=== PATIENT | female | born 1955 | race Caucasian/White ===

== ENCOUNTER 2021-12-25 09:32 | Observation (INO) ==
[2021-12-25] MEDS ORDERED: KETOROLAC TROMETHAMINE 15 MG/ML VIAL IV STA (09:42)
[2021-12-25] MEDS ORDERED: SODIUM CHLORIDE 0.9% 1000ML 500 ML IV ONE (09:42)
[2021-12-25] MEDS ORDERED: ONDANSETRON INJ 2 MG/ML 2 ML VIAL IV STA (09:42)
[2021-12-25 10:07] LABS: Basophils # (auto) 0.08 K/uL (0-0.2); Basophils % (auto) 0.6 %; Eosinophils # (auto) 0.46 K/uL (0-0.50); Eosinophils % (auto) 3.7 %; Hematocrit (blood only) 40.9 % (34.1-44.9); Immature Granulocytes # (auto) 0.11 K/uL (0.00-0.02); Immature Granulocytes % (auto) 0.9 %; Lymphocytes # (auto) 1.37 K/uL (1.2-3.4); Lymphocytes % (auto) 10.9 %; Mean Corpuscular Hemoglobin 28.9 pg (25.0-34.0); Mean Corpuscular Hgb Conc 34.2 g/dL (32.0-36.0); Mean Corpuscular Volume 84.3 fL (80.0-100.0); Mean Platelet Volume 9.5 fL (9.4-12.3); Monocytes # (auto) 0.92 K/uL (0.24-0.82); Monocytes % (auto) 7.3 %; Neutrophils # (auto) 9.65 K/uL (1.4-6.5); Neutrophils % (auto) 76.6 %; Platelet Count 238 K/uL (130-400); RDW Coefficient of Variation 12.3 % (11.5-14.5); RDW Standard Deviation 37.8 fL (36.4-46.3); Red Blood Count 4.85 M/uL (3.93-5.22); White Blood Count 12.59 K/ul (4.8-10.8)
[2021-12-25 10:10] LABS: Appearance Urine Clear (Clear); Bacteria Urine Automated Negative (Negative); Bilirubin Urine Negative (Negative); Blood Urine 1+ (Negative); Cast Urine Automated 0 /lpf (0-5); Color Urine Yellow; Epithelial Cell Urine Auto 0-5 /lpf (0-5); Glucose Urine UA Negative (Negative); Ketones Urine Negative (Negative); Leukocyte Esterase Urine Negative (Negative); Nitrite Urine Negative (Negative); Protein Urine Negative (Negative); Specific Gravity Urine 1.009 (1.000-1.030); Urobilinogen Urine Negative (Negative); WBC Urine Automated 0 /hpf (0-5)
[2021-12-25 10:25] LABS: Albumin Level 4.2 gm/dl (3.4-5.0); BUN Creatinine Ratio 18.3 (10-20); Bilirubin Direct 0.1 mg/dl (0-0.2); Bilirubin,Total 0.8 mg/dl (0.2-1.0); Calcium 8.8 mg/dl (8.5-10.1); Creatinine Clr Calc Pharmacy 68.2 ml/min; Est GFR (African American) 103.6 ml/min; Est GFR (Non-African American) 89.4 ml/min; Total Protein 6.8 gm/dl (6.0-8.3)
[2021-12-25] MEDS ORDERED: OPTIRAY 300 100mL IV ONE (10:39)
--- NOTE | 2021-12-25 10:54 | CT Scan Report ---
ABDOMEN AND PELVIS CT WITH IV CONTRAST CT DOSE: 267.49 mGy.cm HISTORY: Left lower quadrant abdominal pain. TECHNIQUE: Multiaxial CT images of the abdomen and pelvis were performed following the use of intrave nous contrast. A dose lowering technique was utilized adhering to the principles of ALARA. COMPARISON STUDY: None. FINDINGS: Mild dependent changes seen within the lung bases. No pneumoperitoneum. No pneumatosis. Mil [id number]-na-daxsbrlm levoscoliosis of the lower thoracolumbar spine. No fractures within the visualized osse ous structures. A few subcentimeter hypodense lesions within the liver which are technically too smal l to characterize but favor cysts. The gallbladder, spleen, adrenal glands, and kidneys are unremarka ble. No hydronephrosis. The main portal vein is patent. Normal caliber abdominal aorta. No retroperit hutton lymphadenopathy. There is a 5 mm hypodense lesion within the pancreatic head. This is technical ly too small to characterize but favors a small cystic lesion such as a side branch intraductal papil meghna mucinous neoplasm or serous cystadenoma. The bladder, uterus, and ovaries are within normal limi ts. Trace pelvic free fluid. Multiple colonic diverticula. Focal thickening within the proximal to mi d sigmoid colon with pericolonic fat stranding and an inflamed diverticulum consistent with acute div erticulitis. There is a loculated peripheral enhancing hypodense focus within the inflamed sigmoid co corby on image 331 which measures 2 cm. This favors a small intramural abscess. No extraluminal gas kalin ntified. No evidence for bowel obstruction. Moderate well-formed stool within the colon. Normal appen leticia. IMPRESSION: 1. Acute sigmoid diverticulitis. There appears to be a 2 cm intramural abscess. No extraluminal gas i dentified at this time. 2. No evidence for a bowel obstruction. 3. Normal appendix. 4. Trace pelvic free fluid. ACT 112: Negative or not required by law. Electronically signed by: Josep Billingsley M.D. 12/25/2021 10:51 AM
[2021-12-25] MEDS ORDERED: PIPERACILLIN/TAZOBACTAM 4.5 GM/120 ML BAG IV ONE (11:03)
--- NOTE | 2021-12-25 11:09 | Emergency Department Note ---
History of Present Illness General Chief Complaint: GI Assessment Stated Complaint: ABDOMINAL PAIN, NAUSEA, CRAMPING Time Seen by Provider: 12/25/21 09:42 History of Present Illness Provider Complaint: abdominal pain Onset (ago): 2 week(s) Pain Consistency: intermittent Location: LLQ Severity: mild Maximum Pain Intensity: 2 Current Pain Intensity: 2 Quality: + stabbing and + sharp Relieved By: + nothing Exacerbated By: + nothing Context: no foreign travel, no possible food poisoning, no sick contacts, no recent antibiotic use, no recent surgery/procedure or no recent injury Associated Symptoms: + nausea and + vomiting; no diarrhea, no fever, no chills, no constipation, no dysuria, no hematemesis, no hematochezia, no melena, no hematuria, no anorexia, no syncope, no headache, no neck pain, no chest pain, no weakness and no breathing difficulty Related Data Patient Confirmed : No Home Medications Medication Instructions Recorded Confirmed Type clobetasol 0.05 % topical cream 1 applic topical .COMPLEX #15 grams 08/19/21 12/25/21 Rx estradiol 0.01% (0.1 mg/gram) 1 g vaginal .COMPLEX #42.5 grams 08/19/21 12/25/21 Rx vaginal cream multivitamin (Multiple Vitamins 1 tab PO DAILY 08/19/21 12/25/21 History tablet) Allergies Allergy/AdvReac Type Severity Reaction Status Date / Time nickel Allergy Unknown rash Verified 08/19/21 14:43 No Known Drug Allergies Allergy Verified 08/19/21 14:43 Past Med/Surg History Medical History Dyspareunia due to medical condition in female History of depression History of postmenopausal bleeding History of uterine leiomyoma Lichen sclerosus et atrophicus Postmenopausal Postmenopausal atrophic vaginitis Surgical History S/P arthroscopy of knee S/P tooth extraction Status post hysteroscopic polypectomy Status post phlebectomy Family History Uncle Colorectal cancer maternal Mother Diabetes Father Hypertension Denies family history of Ovarian cancer Breast cancer Social History Smoking Status: Never smoker Feels Safe at Home: Yes Review of Systems A total of 10 systems reviewed and were otherwise negative Physical Exam Vital Signs: Vital Signs - 24 hr 12/25/21 09:38 12/25/21 11:24 12/25/21 13:00 Temperature 36.8 C Temperature Source Temporal Artery Sc an Pulse Rate 76 Pulse Rate [Left F quentin] 57 L 67 Respiratory Rate 20 17 16 Respiratory Effort / Characteristics Non-Labored Non-Labored Respiratory Depth Normal Blood Pressure 123/68 Blood Pressure [Le ft Arm] 105/56 L 112/64 Blood Pressure Diamond n 86 Blood Pressure Diamond n [Left Arm] 72 80 Pulse Oximetry 98 99 100 Oxygen Delivery Me thod Room Air Room Air Room Air Sepsis Recent Feve r Within 48 Hours No Sepsis New/Unexpla ined Change in Men rey Status N/A Sepsis Action Take n by Nursing No Action Required Physical Exam: Physical Exam GENERAL: She is oriented to person, place, and time. She appears well-developed and well-nourished. She does not appear distressed. HENT: Exam performed. -Head: Normocephalic and atraumatic. -Right Ear: External ear normal. No mastoid tenderness. -Left Ear: External ear normal. No mastoid tenderness. -Mouth/Throat: The oropharynx is clear and moist. No trismus in the jaw. No dental abscesses or uvula swelling. No oropharyngeal exudate or tonsillar a bscesses. EYES: Conjunctivae and EOM are normal. Pupils are equal, round, and reactive to light. Right eye exhibits no discharge. Left eye exhibits no discharge. No scleral icterus. NECK: Normal range of motion. Neck supple. No JVD present. No spinous process tenderness present. No carotid bruit present. No rigidity. No tracheal deviation and normal range of motion present. No Brudzinski's sign and no Kernig's sign noted. CV: Normal rate, regular rhythm, normal heart sounds and intact distal pulses. There is no peripheral edema. Palpable radial pulses bue. PULM/CHEST: Effort normal and breath sounds normal. No respiratory distress. No stridor. She has no wheezes. She has no rales. -Chest Wall: She exhibits no tenderness. ABD: The abdomen is soft. Bowel sounds are normal. She has no distension. No mass is present. There is tenderness to palpation of the left lower quadrant. There is no rebound, no guarding, no Vaughan's sign and no tenderness at McBurney's point. Rovsig negative MUSC/SKEL: Normal range of motion. There is no peripheral edema, tenderness or deformity. LYMPH: No cervical adenopathy. NEURO: She is alert and oriented to person, place, and time. She has normal strength. No cranial nerve deficit or sensory deficit. Coordination and gait normal. GCS eye subscore is 4. GCS verbal subscore is 5. GCS motor subscore is 6. Cerebellar tests wnl. SKIN: Skin is warm and dry. She is not diaphoretic. PSYCH: She has a normal mood and affect. Behavior is normal. Judgment and thought content normal. Course Course 941: The patient was evaluated in room B11. A complete history and physical exam was performed Cardiac monitoring: An order was placed for continuous cardiac monitoring. The monitor shows a rate of 70 with sinus rhythm 1125: Vital signs stable. Labs within normal limits with exception of minimal leukocytosis. CT of the abdomen shows diverticulitis with a 2 cm intramural abscess. Discussed case with Dr. Littlejohn general surgery who agrees patient can be admitted to medicine and she will be on consult. Zosyn ordered for the patient. Spoke with Ashley Peguero hospitalist who stated to admit to Dr. Malik service. Administered Medications Discontinued Medications Sodium Chloride (Nss 1000ml) 500 mls @ 999 mls/hr IV .Q31M ONE Stop: 12/25/21 10:12 Last Infusion: 12/25/21 10:44 Dose: 0 mls/hr Documented By: Admin: 12/25/21 10:03 Dose: 999 mls/hr Documented By: BRAD Piperacillin Sod/Tazobactam Sod (Zosyn) 4.5 gm in 120 mls @ 240 mls/hr IV NOW ONE Stop: 12/25/21 11:32 Last Infusion: 12/25/21 11:50 Dose: 0 mls/hr Documented By: Admin: 12/25/21 11:20 Dose: 240 mls/hr Documented By: CHRISSY Ioversol (Optiray 300 100ml) 94 ml IV ONCE ONE Stop: 12/25/21 10:40 Last Admin: 12/25/21 10:40 Dose: 94 ml Documented By: MATT Ketorolac Tromethamine (Ketorolac Tromethamine 15 Mg/Ml Vial) 15 mg IV NOW STA Stop: 12/25/21 09:43 Last Admin: 12/25/21 10:03 Dose: 15 mg Documented By: BRAD Ondansetron HCl (Ondansetron Inj 2 Mg/Ml 2 Ml Vial) 4 mg IV NOW STA Stop: 12/25/21 09:43 Last Admin: 12/25/21 10:03 Dose: 4 mg Documented By: BRAD Medical Decision Making Laboratory Data Result diagrams: 12/25/21 09:58 12/25/21 09:58 Lab Results 12/25/21 12/25/21 12/25/21 Range/Units 09:55 09:58 09:58 WBC 12.59 H (4.8-10.8) K/ul RBC 4.85 (3.93-5.22) M/uL Hgb 14.0 (12.0-16.0) g/dl Hct 40.9 (34.1-44.9) % MCV 84.3 (80.0-100.0) fL MCH 28.9 (25.0-34.0) pg MCHC 34.2 (32.0-36.0) g/dL RDW Std Deviation 37.8 (36.4-46.3) fL RDW Coeff of Dixon 12.3 (11.5-14.5) % Plt Count 238 (130-400) K/uL MPV 9.5 (9.4-12.3) fL Immature Gran % (Auto) 0.9 % Neut % (Auto) 76.6 % Lymph % (Auto) 10.9 % [place] % (Auto) 7.3 % Eos % (Auto) 3.7 % Baso % (Auto) 0.6 % Neut # (Auto) 9.65 H (1.4-6.5) K/uL Lymph # (Auto) 1.37 (1.2-3.4) K/uL [place] # (Auto) 0.92 H (0.24-0.82) K/uL Eos # (Auto) 0.46 (0-0.50) K/uL Baso # (Auto) 0.08 (0-0.2) K/uL Immature Gran # (Auto) 0.11 H (0.00-0.02) K/uL Sodium 131 L (136-145) mmol/L Potassium 4.0 (3.5-5.1) mmol/L Chloride 96 L (98-107) mmol/L Carbon Dioxide 29 (21-32) mmol/L Anion Gap 6 (3-11) BUN 13 (6-23) mg/dl Creatinine 0.71 (0.6-1.2) mg/dl Est Cr Clr Drug Dosing 68.2 ml/min Est GFR ( Amer) 103.6 ml/min Est GFR (Non-Af Amer) 89.4 ml/min BUN/Creatinine Ratio 18.3 (10-20) Glucose 95 (70-99(Fasting)) mg/dl Calcium 8.8 (8.5-10.1) mg/dl Total Bilirubin 0.8 (0.2-1.0) mg/dl Direct Bilirubin 0.1 (0-0.2) mg/dl AST 13 (13-39) U/L ALT 10 (7-52) U/L Alkaline Phosphatase 65 (34-104) U/L Total Protein 6.8 (6.0-8.3) gm/dl Albumin 4.2 (3.4-5.0) gm/dl Lipase 8 L (11-82) U/L Urine Color Yellow Urine Appearance Clear (Clear) Urine pH 8.0 H (4.5-7.5) Ur Specific [place] 1.009 (1.000-1.030) Urine Protein Negative (Negative) Urine Glucose (UA) Negative (Negative) Urine Ketones Negative (Negative) Urine Blood 1+ H (Negative) Urine Nitrite Negative (Negative) Urine Bilirubin Negative (Negative) Urine Urobilinogen Negative (Negative) Ur Leukocyte Esterase Negative (Negative) Urine WBC (Auto) 0 (0-5) /hpf Urine RBC (Auto) 5-10 H (0-4) /hpf U Hyaline Cast (Auto) 0 (0-5) /lpf U Epithel Cells (Auto) 0-5 (0-5) /lpf Urine Bacteria (Auto) Negative (Negative) SARS-CoV-2, RNA, NAAT (NEGATIVE) 12/25/21 Range/Units 11:59 WBC (4.8-10.8) K/ul RBC (3.93-5.22) M/uL Hgb (12.0-16.0) g/dl Hct (34.1-44.9) % MCV (80.0-100.0) fL MCH (25.0-34.0) pg MCHC (32.0-36.0) g/dL RDW Std Deviation (36.4-46.3) fL RDW Coeff of Dixon (11.5-14.5) % Plt Count (130-400) K/uL MPV (9.4-12.3) fL Immature Gran % (Auto) % Neut % (Auto) % Lymph % (Auto) % [place] % (Auto) % Eos % (Auto) % Baso % (Auto) % Neut # (Auto) (1.4-6.5) K/uL Lymph # (Auto) (1.2-3.4) K/uL [place] # (Auto) (0.24-0.82) K/uL Eos # (Auto) (0-0.50) K/uL Baso # (Auto) (0-0.2) K/uL Immature Gran # (Auto) (0.00-0.02) K/uL Sodium (136-145) mmol/L Potassium (3.5-5.1) mmol/L Chloride (98-107) mmol/L Carbon Dioxide (21-32) mmol/L Anion Gap (3-11) BUN (6-23) mg/dl Creatinine (0.6-1.2) mg/dl Est Cr Clr Drug Dosing ml/min Est GFR ( Amer) ml/min Est GFR (Non-Af Amer) ml/min BUN/Creatinine Ratio (10-20) Glucose (70-99(Fasting)) mg/dl Calcium (8.5-10.1) mg/dl Total Bilirubin (0.2-1.0) mg/dl Direct Bilirubin (0-0.2) mg/dl AST (13-39) U/L ALT (7-52) U/L Alkaline Phosphatase (34-104) U/L Total Protein (6.0-8.3) gm/dl Albumin (3.4-5.0) gm/dl Lipase (11-82) U/L Urine Color Urine Appearance (Clear) Urine pH (4.5-7.5) Ur Specific [place] (1.000-1.030) Urine Protein (Negative) Urine Glucose (UA) (Negative) Urine Ketones (Negative) Urine Blood (Negative) Urine Nitrite (Negative) Urine Bilirubin (Negative) Urine Urobilinogen (Negative) Ur Leukocyte Esterase (Negative) Urine WBC (Auto) (0-5) /hpf Urine RBC (Auto) (0-4) /hpf U Hyaline Cast (Auto) (0-5) /lpf U Epithel Cells (Auto) (0-5) /lpf Urine Bacteria (Auto) (Negative) SARS-CoV-2, RNA, NAAT NEGATIVE (NEGATIVE) Imaging Data Radiologist's Impression: Abdomen/Pelvis CT 12/25/21 09:[address] WITH IV CONTRAST CT DOSE: 267.49 mGy.cm HISTORY: Left lower quadrant abdominal pain. TECHNIQUE: Multiaxial CT images of the abdomen and pelvis were performed following the use of intravenous contrast. A dose lowering technique was utilized adhering to the principles of ALARA. COMPARISON STUDY: None. FINDINGS: Mild dependent changes seen within the lung bases. No pneumo peritoneum. No pneumatosis. [id number] levoscoliosis of the lower thoracolumbar spine. No fractures within the visualized osseous structures. A few subcentimeter hypodense lesions within the liver which are technically too small to characterize but favor cysts. The gallbladder, spleen, adrenal glands, and kidneys are unremarkable. No hydronephrosis. The main portal vein is patent. Normal caliber abdominal aorta. No retroperitoneal lymphadenopathy. There is a 5 mm hypodense lesion within the pancreatic head. This is technically too small to characterize but favors a small cystic lesion such as a side branch intraductal papillary mucinous neoplasm or serous cystadenoma. The bladder, uterus, and ovaries are within normal limits. Trace pelvic free fluid. Multiple colonic diverticula. Focal thickening within the proximal to mid sigmoid colon with pericolonic fat stranding and an inflamed diverticulum consistent with acute diverticulitis. There is a loculated peripheral enhancing hypodense focus within the inflamed sigmoid colon on image 331 which measures 2 cm. This favors a small intramural abscess. No extraluminal gas identified. No evidence for bowel obstruction. Moderate well-formed stool within the colon. Normal appendix. IMPRESSION: 1. Acute sigmoid diverticulitis. There appears to be a 2 cm intramural abscess. No extraluminal gas identified at this time. 2. No evidence for a bowel obstruction. 3. Normal appendix. 4. Trace pelvic free fluid. ACT 112: Negative or not required by law. Electronically signed by: Josep Billingsley M.D. 12/25/2021 10:51 AM MDM Narrative Vital signs stable. Labs within normal limits with exception of minimal leukocytosis. CT of the abdomen shows diverticulitis with a 2 cm intramural abscess. Discussed case with Dr. Littlejohn general surgery who agrees patient can be admitted to medicine and she will be on consult. Zosyn ordered for the patient. Spoke with Ashley Peguero hospitalist who stated to admit to Dr. Malik service. Impression & Plan Diverticulitis Discharge Plan Visit Data Chief Complaint: GI Assessment Stated Complaint: ABDOMINAL PAIN, NAUSEA, CRAMPING ED Provider: Remy Espitia Discharge Problem: Diverticulitis Patient Disposition: Admitted As Inpatient Forms Stand Alone Forms: [facility] [employer] Prescriptions Prescriptions: No Action multivitamin [Multiple Vitamins] Tablet 1 tab PO DAILY clobetasol 0.05 % cream 1 applic TOP .COMPLEX Qty: 15 1RF Rx Instructions: 1 applic topical 1-2 times per week; estradiol 0.01 % (0.1 mg/gram) cream 1 g vaginal .COMPLEX Qty: 42.5 2RF Rx Instructions: 1 g apply to vulva twice weekly Referrals Referrals: Cuba Washington MD [Primary Care Provider] -
--- NOTE | 2021-12-25 11:27 | History & Physical Report ---
Date of Service December 25, 2021 Assessment & Plan (1) Diverticulitis: (2) Abscess of sigmoid colon due to diverticulitis: Plan: Patient is 66-year-old female with PMH diverticulitis presented to ER with complaint of nauea x 1 week, LLQ pain x 2 days. Denies fever/chills, vomiting, diarrhea. In ER patient afebrile, vital stable. WBC: 12.5. In ER CT abdomen pelvis: Acute sigmoid diverticulitis, 2 cm intramural abscess. In ER given Zofran, Zosyn, Toradol, 500 mL NSS Blood cultures pending, obtained after initial antibiotics given N.p.o. IVF Zosyn General surgery consult. Recommends bowel rest and Zosyn, with no need for surgical intervention at this time CBC, BMP in a.m. (3) Lichen sclerosus et atrophicus: Plan: Can continue chronic estradiol cream DVT Prophylaxis SCDs Full Code as per discussion with pt Follows with Dr Washington for routine care Pt was seen and care coordinated with Dr Malik. See addendum History of Present Illness Chief Complaint: Left lower abdominal pain Primary Care Provider: Cuba Washington MD Patient is 66-year-old female with PMH diverticulitis presented to ER with complaint of left lower quadrant pain x 2 days. Reports past week with intermittent nausea that became worse yesterday. LLQ aching and cramping for 2 days that worsened last night. Denies radiating pain. She has been having clear liquid diet at home past several days as she was concerned she may have diverticulitis. Reports eating seemed to make pain worse. Patient reports history of diverticulitis in past that was able to be treated outpatient. Denies fever, chills, vomiting, diarrhea. Last BM this morning. History colonoscopy 04/05/2021: Diverticulosis in the entire colon. Denies diaphoresis, melena, hematochezia, TAPIA, dizziness, syncope, vision changes, neck pain, CP, SOB, orthopnea, palpitations, cough, sore throat, choking, otalgia, rhinorrhea, paresthesias, weakness, extremity weakness, extremity edema, rashes, urinary symptoms. In ER CT abdomen pelvis: Acute sigmoid diverticulitis, 2 cm intramural abscess. Allergies Allergy/AdvReac Type Severity Reaction Status Date / Time nickel Allergy Unknown rash Verified 08/19/21 14:43 No Known Drug Allergies Allergy Verified 08/19/21 14:43 Home Medications Medication Instructions Recorded Confirmed Type clobetasol 0.05 % topical cream 1 applic topical .COMPLEX #15 grams 08/19/21 12/25/21 Rx estradiol 0.01% (0.1 mg/gram) 1 g vaginal .COMPLEX #42.5 grams 08/19/21 12/25/21 Rx vaginal cream multivitamin (Multiple Vitamins 1 tab PO DAILY 08/19/21 12/25/21 History tablet) Past Med/Surg History Medical History Dyspareunia due to medical condition in female History of depression History of postmenopausal bleeding History of uterine leiomyoma Lichen sclerosus et atrophicus Postmenopausal Postmenopausal atrophic vaginitis Surgical History S/P arthroscopy of knee S/P tooth extraction Status post hysteroscopic polypectomy Status post phlebectomy Family History Uncle Colorectal cancer maternal Mother Diabetes Father Hypertension Denies family history of Ovarian cancer Breast cancer Social History (Updated 12/25/21 @ 13:27 by Aleksandra Hinton PA-C) Smoking Status: Never smoker Second Hand Exposure: No; Do You Dip or Chew Tobacco: No; Hx Alcohol Use: No Hx Substance Use: No Preferred Language: Malaysian Communication Ability: Effective Steam Table Attendant Required: No Beliefs That Will Affect Care: None Current Living Situation: Spouse Other Information That Helps Us Care for You: No Feels Safe at Home: Yes Safety Concerns: Feels Safe At This Time Assistive Devices: Glasses Review of Systems Review of Systems: All systems reviewed & are unremarkable except as noted in HPI & below Physical Exam Physical Exam: General: no distress, WDWN Head: normocephalic, atraumatic Eyes: conjunctiva non-injected, anicteric ENT: normal inspection external ears, nose, mucous membranes moist Neck: supple, trachea midline Lungs: clear, no respiratory distress, no wheezing/rhonchi/rales CV: RRR, no murmur, no pretibial edema Abd: normal BS, soft, +tenderness to palpation LLQ Ext: no cyanosis, no calf tenderness Neuro: A&O x 3, no focal deficits noted, normal affect Skin: warm, dry Results & Data Results & Data ([facility]) Vital Signs (Past 12 Hours) Vital Signs Temp Pulse Resp BP Pulse Ox O2 Del Method 12/25/21 09:38 36.8 C 76 20 123/68 98 Room Air Laboratory Results Short CBC 12/25/21 Range/Units 09:58 WBC 12.59 H (4.8-10.8) K/ul Hgb 14.0 (12.0-16.0) g/dl Hct 40.9 (34.1-44.9) % Plt Count 238 (130-400) K/uL BMP 12/25/21 09:58 Sodium 131 L Potassium 4.0 Chloride 96 L Carbon Dioxide 29 BUN 13 Creatinine 0.71 Glucose 95 Calcium 8.8 Liver Function 12/25/21 Range/Units 09:58 Total Bilirubin 0.8 (0.2-1.0) mg/dl Direct Bilirubin 0.1 (0-0.2) mg/dl AST 13 (13-39) U/L ALT 10 (7-52) U/L Alkaline Phosphatase 65 (34-104) U/L Albumin 4.2 (3.4-5.0) gm/dl Urine 12/25/21 Range/Units 09:55 Urine Color Yellow Urine Appearance Clear (Clear) Urine pH 8.0 H (4.5-7.5) Ur Specific [place] 1.009 (1.000-1.030) Urine Protein Negative (Negative) Urine Glucose (UA) Negative (Negative) Diagnostic Findings Abdomen/Pelvis CT 12/25/21 09:[address] WITH IV CONTRAST CT DOSE: 267.49 mGy.cm HISTORY: Left lower quadrant abdominal pain. TECHNIQUE: Multiaxial CT images of the abdomen and pelvis were performed following the use of intravenous contrast. A dose lowering technique was utilized adhering to the principles of ALARA. COMPARISON STUDY: None. FINDINGS: Mild dependent changes seen within the lung bases. No pneumoperitoneum. No pneumatosis. Cuks-ri-wcuuxiqf levoscoliosis of the lower thoracolumbar spine. No fractures within the visualized osseous structures. A few subcentimeter hypodense lesions within the liver which are technically too small to characterize but favor cysts. The gallbladder, spleen, adrenal glands, and kidneys are unremarkable. No hydronephrosis. The main portal vein is patent. Normal caliber abdominal aorta. No retroperitoneal lymphadenopathy. There is a 5 mm hypodense lesion within the pancreatic head. This is technically too small to characterize but favors a small cystic lesion such as a side branch intraductal papillary mucinous neoplasm or serous cystadenoma. The bladder, uterus, and ovaries are within normal limits. Trace pelvic free fluid. Multiple colonic diverticula. Focal thickening within the proximal to mid sigmoid colon with pericolonic fat stranding and an inflamed diverticulum consistent with acute diverticulitis. There is a loculated peripheral enhancing hypodense focus within the inflamed sigmoid colon on image 331 which measures 2 cm. This favors a small intramural abscess. No extraluminal gas identified. No evidence for bowel obstruction. Moderate well-formed stool within the colon. Normal appendix. IMPRESSION: 1. Acute sigmoid diverticulitis. There appears to be a 2 cm intramural abscess. No extraluminal gas identified at this time. 2. No evidence for a bowel obstruction. 3. Normal appendix. 4. Trace pelvic free fluid. ACT 112: Negative or not required by law. Electronically signed by: Josep Billingsley M.D. 12/25/2021 10:51 AM Supervising Physician Co-Signing Physician Notes I have seen and examined the patient and have discussed the case with the provider above. I agree with the assessment and plan as stated. 66 yo with h/o diverticular disease presented with acute complicated diverticulitis. She is stable and nontoxic appearing and pain appears to be controlled on current medical therapy. Abdomen is soft, TTP in LLQ region and non distended without guarding or peritoneal signs. Vitals are stable and she is mentating clearly. Agree with plans for intravenous Zosyn pending cultures and clinical improvement. Defer repeat imaging to surgeon consulted. DO King
--- NOTE | 2021-12-25 12:09 | Surgery Consultation ---
Date of Consultation December 25, 2021 Assessment & Plan (1) Abscess of sigmoid colon due to diverticulitis: Small 2 cm abscess, intramural, likely to respond to IV antibiotics. Discussed bowel rest, IV antibiotics. If improves, will be able to advance diet and discharge on PO antibiotics. No indication for urgent surgical intervention. Will follow. History of Present Illness Reason for Consultation: diverticulitis Requesting Physician: SRINATH Jacobs Attending Physician: SRINATH Puckett History of Present Illness 66 yr old woman presents with third or fourth episode of left sided sigmoid diverticulitis. Has had two or three episodes in the last 10 yrs, always treated with outpatient antibiotics. A week ago, noted nausea. A few days ago, developed left sided abdominal pain, moderate to severe in intensity (7/10) associated with nausea/ vomiting. Pain worse with movement, no radiation, no relieving factors. No radiation. As the pain was very severe last evening (unable to sleep because of the pain), she presented to ER for evaluation. CT scan showed left sided diverticulitis with 2 cm intramural abscess. She is up to date on colonoscopies (gets them every 5 yrs due to polyps). Pain is already better following a dose of antibiotics. Allergies Allergy/AdvReac Type Severity Reaction Status Date / Time nickel Allergy Unknown rash Verified 08/19/21 14:43 No Known Drug Allergies Allergy Verified 08/19/21 14:43 Home Medications Medication Instructions Recorded Confirmed Type clobetasol 0.05 % topical cream 1 applic topical .COMPLEX #15 grams 08/19/21 12/25/21 Rx estradiol 0.01% (0.1 mg/gram) 1 g vaginal .COMPLEX #42.5 grams 08/19/21 12/25/21 Rx vaginal cream multivitamin (Multiple Vitamins 1 tab PO DAILY 08/19/21 12/25/21 History tablet) Patient History Medical History Dyspareunia due to medical condition in female History of depression History of postmenopausal bleeding History of uterine leiomyoma Lichen sclerosus et atrophicus Postmenopausal Postmenopausal atrophic vaginitis Surgical History S/P arthroscopy of knee S/P tooth extraction Status post hysteroscopic polypectomy Status post phlebectomy Family History Uncle Colorectal cancer maternal Mother Diabetes Father Hypertension Denies family history of Ovarian cancer Breast cancer Social History Smoking Status: Never smoker Feels Safe at Home: Yes Review of Systems Review of Systems: All systems reviewed & are unremarkable except as noted in HPI & below Physical Exam Constitutional: WD/WN, vitals as above Eyes: PERRL, conjunctivae normal, anicteric sclerae ENMT: Ears: no external ear abnormality Neck: normal visual inspection and trachea midline Respiratory: normal respiratory effort, lungs clear to auscultation Cardiovascular: RRR, no murmur, no edema Gastrointestinal (Abdomen): Inspection/Auscultation: abdomen normal to inspection and normal bowel sounds; abdomen not distended and no abdominal surgical scar Percussion/Palpation: + abdomen tender (left lower quadrant) and abdomen soft; no guarding Musculoskeletal: Extremities: extremities normal to inspection Neurologic: awake; no focal motor deficits Psychiatric: A+Ox3, euthymic affect Results & Data ([facility]) Vital Signs (Past 12 Hours) Vital Signs Temp Pulse Pulse Resp BP BP Pulse Ox 12/25/21 11:24 57 L 17 105/56 L 99 12/25/21 09:38 36.8 C 76 20 123/68 98 O2 Del Method 12/25/21 11:24 Room Air 12/25/21 09:38 Room Air Laboratory Results Abnormal lab results 12/25/21 12/25/21 12/25/21 Range/Units 09:55 09:58 09:58 WBC 12.59 H (4.8-10.8) K/ul Neut # (Auto) 9.65 H (1.4-6.5) K/uL [place] # (Auto) 0.92 H (0.24-0.82) K/uL Immature Gran # (Auto) 0.11 H (0.00-0.02) K/uL Sodium 131 L (136-145) mmol/L Chloride 96 L (98-107) mmol/L Lipase 8 L (11-82) U/L Urine pH 8.0 H (4.5-7.5) Urine Blood 1+ H (Negative) Urine RBC (Auto) 5-10 H (0-4) /hpf Diagnostic Findings CT scan: ABDOMEN AND PELVIS CT WITH IV CONTRAST CT DOSE: 267.49 mGy.cm HISTORY: Left lower quadrant abdominal pain. TECHNIQUE: Multiaxial CT images of the abdomen and pelvis were performed following the use of intravenous contrast. A dose lowering technique was utilized adhering to the principles of ALARA. COMPARISON STUDY: None. FINDINGS: Mild dependent changes seen within the lung bases. No pneumoperitoneum. No pneumatosis. [id number] levoscoliosis of the lower thoracolumbar spine. No fractures within the visualized osseous structures. A few subcentimeter hypodense lesions within the liver which are technically too small to characterize but favor cysts. The gallbladder, spleen, adrenal glands, and kidneys are unremarkable. No hydronephrosis. The main portal vein is patent. Normal caliber abdominal aorta. No retroperitoneal lymphadenopathy. There is a 5 mm hypodense lesion within the pancreatic head. This is technically too small to characterize but favors a small cystic lesion such as a side branch intraductal papillary mucinous neoplasm or serous cystadenoma. The bladder, uterus, and ovaries are within normal limits. Trace pelvic free fluid. Multiple colonic diverticula. Focal thickening within the proximal to mid sigmoid colon with pericolonic fat stranding and an inflamed diverticulum consistent with acute diverticulitis. There is a loculated peripheral enhancing hypodense focus within the inflamed sigmoid colon on image 331 which measures 2 cm. This favors a small intramural abscess. No extraluminal gas identified. No evidence for bowel obstruction. Moderate well-formed stool within the colon. Normal appendix. IMPRESSION: 1. Acute sigmoid diverticulitis. There appears to be a 2 cm intramural abscess. No extraluminal gas identified at this time. 2. No evidence for a bowel obstruction. 3. Normal appendix. 4. Trace pelvic free fluid.
[2021-12-25] MEDS ORDERED: KETOROLAC TROMETHAMINE 15 MG/ML VIAL IV PRN (14:53)
[2021-12-25] MEDS ORDERED: ONDANSETRON INJ 2 MG/ML 2 ML VIAL IV PRN (14:53)
[2021-12-25] MEDS ORDERED: ACETAMINOPHEN 1000 MG/100 ML IV IV PRN (14:53)
[2021-12-25] MEDS: SODIUM CHLORIDE 0.9% 1000ML 1,000 ML IV SCH (15:39)
[2021-12-25] MEDS: PIPERACILLIN/TAZOBACTAM 3.375 GM in DEXTROSE 5% 100 ML IV SCH (16:31)
[2021-12-25] MEDS ORDERED: ACETAMINOPHEN 325 MG TAB PO PRN (20:00)
[2021-12-26] MEDS: PIPERACILLIN/TAZOBACTAM 3.375 GM in DEXTROSE 5% 100 ML IV SCH ×4 (00:08→23:44)
[2021-12-26] MEDS: SODIUM CHLORIDE 0.9% 1000ML 1,000 ML IV SCH (02:06)
[2021-12-26 08:36] LABS: Basophils # (auto) 0.07 K/uL (0-0.2); Eosinophils # (auto) 0.42 K/uL (0-0.50); Eosinophils % (auto) 6.2 %; Hematocrit (blood only) 35.7 % (34.1-44.9); Hemoglobin 11.9 g/dl (12.0-16.0); Immature Granulocytes # (auto) 0.23 K/uL (0.00-0.02); Immature Granulocytes % (auto) 3.4 %; Lymphocytes # (auto) 0.91 K/uL (1.2-3.4); Lymphocytes % (auto) 13.4 %; Mean Corpuscular Hgb Conc 33.3 g/dL (32.0-36.0); Mean Corpuscular Volume 86.9 fL (80.0-100.0); Mean Platelet Volume 9.6 fL (9.4-12.3); Monocytes # (auto) 0.49 K/uL (0.24-0.82); Monocytes % (auto) 7.2 %; Neutrophils # (auto) 4.67 K/uL (1.4-6.5); Neutrophils % (auto) 68.8 %; Platelet Count 185 K/uL (130-400); RDW Coefficient of Variation 12.4 % (11.5-14.5); RDW Standard Deviation 39.7 fL (36.4-46.3); Red Blood Count 4.11 M/uL (3.93-5.22); White Blood Count 6.79 K/ul (4.8-10.8)
[2021-12-26 09:00] LABS: BUN Creatinine Ratio 11.3 (10-20); Calcium 8.1 mg/dl (8.5-10.1); Creatinine Clr Calc Pharmacy 60.5 ml/min; Est GFR (African American) 89.7 ml/min; Est GFR (Non-African American) 77.4 ml/min; Potassium 4.1 mmol/L (3.5-5.1)
--- NOTE | 2021-12-26 09:45 | Electrocardiogram Report ---
Test Reason : Blood Pressure : / mmHG Vent. Rate : 054 BPM Atrial Rate : 054 BPM P-R Int : 158 ms QRS Dur : 084 ms QT Int : 452 ms P-R-T Axes : 056 079 066 degrees QTc Int : 428 ms Sinus bradycardia Otherwise normal ECG When compared with ECG of 16-MAR-2008 09:43, No significant change was found Confirmed by Jose Antonio Hernandez [id number]) on 12/26/2021 9:44:34 AM Referred By: REFERRED SELF Confirmed By:Jose Antonio Hernandez
--- NOTE | 2021-12-26 09:49 | Surgery Progress Note ---
Date of Service December 26, 2021 Assessment & Plan (1) Abscess of sigmoid colon due to diverticulitis: Plan: Small 2 cm abscess, intramural First episode of complicated diverticulitis wbc 6k today, afebrile pain slightly improving Plan: Okay for sips of clears today, advised patient to go slow continue iv zosyn, will need total of 14 days of IV and oral antibiotics given intramural abscess will need colonoscopy in 6-[address] will continue to follow Dr. Cali has seen patient during rounds and agrees with above. Admission and Anticipated Discharge Date Admission Date: December 25, 2021 Supervising Physician Co-Signing Physician Notes I have seen and examined the patient agree with the above assessment plan. We will continue conservative management with IV antibiotics. We will slowly advance diet as tolerated. Will need colonoscopy in 6 to 8 weeks. We will continue to follow. Subjective feeling slightly better today, ammonia still operator but not as bad no n,v urinating without difficulty no fevers or chills having headache would like some coffee passes small amount of flatus, no bm Physical Exam Constitutional: WD/WN, vitals as above no acute distress and not ill appearing Neck: trachea midline, no thyromegaly Gastrointestinal (Abdomen): Inspection/Auscultation: abdomen normal to inspection and + hypoactive bowel sounds; abdomen not distended and + abnormal bowel sounds Percussion/Palpation: + abdomen tender (LLQ and LUQ on deep palpation) and abdomen soft; no guarding and abdomen not rigid Skin: no rashes, warm and dry Psychiatric: A+Ox3, euthymic affect Results & Data ([facility]) Vital Signs (Past 12 Hours) Vital Signs Temp Pulse Resp BP Pulse Ox O2 Del Method 12/26/21 08:03 36.7 C 59 L 16 102/54 L 99 12/25/21 21:50 36.7 C 61 16 103/66 97 Room Air Laboratory Results 12/26/21 12/26/21 12/25/21 Range/Units 07:36 07:36 11:59 WBC 6.79 (4.8-10.8) K/ul RBC 4.11 (3.93-5.22) M/uL Hgb 11.9 L (12.0-16.0) g/dl Hct 35.7 (34.1-44.9) % MCV 86.9 (80.0-100.0) fL MCH 29.0 (25.0-34.0) pg MCHC 33.3 (32.0-36.0) g/dL RDW Std Deviation 39.7 (36.4-46.3) fL RDW Coeff of [place] 12.4 (11.5-14.5) % Plt Count 185 (130-400) K/uL MPV 9.6 (9.4-12.3) fL Immature Gran % (Auto) 3.4 % Neut % (Auto) 68.8 % Lymph % (Auto) 13.4 % [place] % (Auto) 7.2 % Eos % (Auto) 6.2 % Baso % (Auto) 1.0 % Neut # (Auto) 4.67 (1.4-6.5) K/uL Lymph # (Auto) 0.91 L (1.2-3.4) K/uL [place] # (Auto) 0.49 (0.24-0.82) K/uL Eos # (Auto) 0.42 (0-0.50) K/uL Baso # (Auto) 0.07 (0-0.2) K/uL Immature Gran # (Auto) 0.23 H (0.00-0.02) K/uL Sodium 137 (136-145) mmol/L Potassium 4.1 (3.5-5.1) mmol/L Chloride 103 (98-107) mmol/L Carbon Dioxide 30 (21-32) mmol/L Anion Gap 4 (3-11) BUN 9 (6-23) mg/dl Creatinine 0.80 (0.6-1.2) mg/dl Est Cr Clr Drug Dosing 60.5 ml/min Est GFR ( Amer) 89.7 ml/min Est GFR (Non-Af Amer) 77.4 ml/min BUN/Creatinine Ratio 11.3 (10-20) Glucose 80 (70-99(Fasting)) mg/dl Calcium 8.1 L (8.5-10.1) mg/dl Total Bilirubin (0.2-1.0) mg/dl Direct Bilirubin (0-0.2) mg/dl AST (13-39) U/L ALT (7-52) U/L Alkaline Phosphatase (34-104) U/L Total Protein (6.0-8.3) gm/dl Albumin (3.4-5.0) gm/dl Lipase (11-82) U/L Urine Color Urine Appearance (Clear) Urine pH (4.5-7.5) Ur Specific [place] (1.000-1.030) Urine Protein (Negative) Urine Glucose (UA) (Negative) Urine Ketones (Negative) Urine Blood (Negative) Urine Nitrite (Negative) Urine Bilirubin (Negative) Urine Urobilinogen (Negative) Ur Leukocyte Esterase (Negative) Urine WBC (Auto) (0-5) /hpf Urine RBC (Auto) (0-4) /hpf U Hyaline Cast (Auto) (0-5) /lpf U Epithel Cells (Auto) (0-5) /lpf Urine Bacteria (Auto) (Negative) SARS-CoV-2, RNA, NAAT NEGATIVE (NEGATIVE) 12/25/21 12/25/21 12/25/21 Range/Units 09:58 09:58 09:55 WBC 12.59 H (4.8-10.8) K/ul RBC 4.85 (3.93-5.22) M/uL Hgb 14.0 (12.0-16.0) g/dl Hct 40.9 (34.1-44.9) % MCV 84.3 (80.0-100.0) fL MCH 28.9 (25.0-34.0) pg MCHC 34.2 (32.0-36.0) g/dL RDW Std Deviation 37.8 (36.4-46.3) fL RDW Coeff of [place] 12.3 (11.5-14.5) % Plt Count 238 (130-400) K/uL MPV 9.5 (9.4-12.3) fL Immature Gran % (Auto) 0.9 % Neut % (Auto) 76.6 % Lymph % (Auto) 10.9 % [place] % (Auto) 7.3 % Eos % (Auto) 3.7 % Baso % (Auto) 0.6 % Neut # (Auto) 9.65 H (1.4-6.5) K/uL Lymph # (Auto) 1.37 (1.2-3.4) K/uL [place] # (Auto) 0.92 H (0.24-0.82) K/uL Eos # (Auto) 0.46 (0-0.50) K/uL Baso # (Auto) 0.08 (0-0.2) K/uL Immature Gran # (Auto) 0.11 H (0.00-0.02) K/uL Sodium 131 L (136-145) mmol/L Potassium 4.0 (3.5-5.1) mmol/L Chloride 96 L (98-107) mmol/L Carbon Dioxide 29 (21-32) mmol/L Anion Gap 6 (3-11) BUN 13 (6-23) mg/dl Creatinine 0.71 (0.6-1.2) mg/dl Est Cr Clr Drug Dosing 68.2 ml/min Est GFR ( Amer) 103.6 ml/min Est GFR (Non-Af Amer) 89.4 ml/min BUN/Creatinine Ratio 18.3 (10-20) Glucose 95 (70-99(Fasting)) mg/dl Calcium 8.8 (8.5-10.1) mg/dl Total Bilirubin 0.8 (0.2-1.0) mg/dl Direct Bilirubin 0.1 (0-0.2) mg/dl AST 13 (13-39) U/L ALT 10 (7-52) U/L Alkaline Phosphatase 65 (34-104) U/L Total Protein 6.8 (6.0-8.3) gm/dl Albumin 4.2 (3.4-5.0) gm/dl Lipase 8 L (11-82) U/L Urine Color Yellow Urine Appearance Clear (Clear) Urine pH 8.0 H (4.5-7.5) Ur Specific [place] 1.009 (1.000-1.030) Urine Protein Negative (Negative) Urine Glucose (UA) Negative (Negative) Urine Ketones Negative (Negative) Urine Blood 1+ H (Negative) Urine Nitrite Negative (Negative) Urine Bilirubin Negative (Negative) Urine Urobilinogen Negative (Negative) Ur Leukocyte Esterase Negative (Negative) Urine WBC (Auto) 0 (0-5) /hpf Urine RBC (Auto) 5-10 H (0-4) /hpf U Hyaline Cast (Auto) 0 (0-5) /lpf U Epithel Cells (Auto) 0-5 (0-5) /lpf Urine Bacteria (Auto) Negative (Negative) SARS-CoV-2, RNA, NAAT (NEGATIVE)
--- NOTE | 2021-12-26 12:47 | Hospitalist Progress Note ---
Date of Service December 26, 2021 Assessment & Plan (1) Diverticulitis: (2) Abscess of sigmoid colon due to diverticulitis: Plan: 66-year-old female with PMH diverticulitis presented to ER with complaint of nauea x 1 week, LLQ pain x 2 days. Denies fever/chills, vomiting, diarrhea. In ER patient afebrile, vital stable. WBC: 12.5. In ER CT abdomen pelvis: Acute sigmoid diverticulitis, 2 cm intramural abscess. In ER given Zofran, Zosyn, Toradol, 500 mL NSS Blood cultures pending, obtained after initial antibiotics given N.p.o. initially - > will start sips of clear liquids currently afebrile and WBC normal cont. gentle IVF cont. Zosyn General surgery consult. Recommends bowel rest and Zosyn, with no need for surgical intervention at this time Will need total of 14 days of antibiotics, and follow-up colonoscopy in 6 to 8 weeks. monitor CBC, BMP (3) Lichen sclerosus et atrophicus: Plan: Can continue chronic estradiol cream DVT Prophylaxis SCDs Full Code as per discussion with pt Follows with Dr Washington for routine care Admission and Anticipated Discharge Date Admission Date: December 25, 2021 Subjective Patient seen in follow-up of diverticulitis, with small abscess Currently laying in bed, in no acute distress Reports feeling better, abdominal pain improved Nausea vomiting resolved, patient is asking if she could start to drink some liquids Started on IV Zosyn on admission, continue Surgery following Review of Systems Review of Systems: All systems reviewed & are unremarkable except as noted in Subjective Physical Exam 2 Physical Exam: General: WD/WN F , in no distress Head: normocephalic, atraumatic Eyes: EOMI, PERRL, conjunctiva non-injected, anicteric ENT: normal inspection external ears, nose, mucous membranes moist Neck: supple Lungs: clear, no respiratory distress, no wheezing/rhonchi/rales CV: RRR, no murmur, no pretibial edema Abd: + BS, soft, +tenderness to palpation LLQ Ext: no calf tenderness, moves extremities Neuro: A&O x 3, normal affect, no facial asymmetry, speech fluent, answers questions appropriately, moves extremities Skin: warm, dry Results & Data Results & Data ([facility]) Vital Signs (Past 12 Hours) Vital Signs Temp Pulse Resp BP Pulse Ox 12/26/21 08:03 36.7 C 59 L 16 102/54 L 99 Laboratory Results 12/26/21 12/26/21 Range/Units 07:36 07:36 WBC 6.79 (4.8-10.8) K/ul RBC 4.11 (3.93-5.22) M/uL Hgb 11.9 L (12.0-16.0) g/dl Hct 35.7 (34.1-44.9) % MCV 86.9 (80.0-100.0) fL MCH 29.0 (25.0-34.0) pg MCHC 33.3 (32.0-36.0) g/dL RDW Std Deviation 39.7 (36.4-46.3) fL RDW Coeff of [place] 12.4 (11.5-14.5) % Plt Count 185 (130-400) K/uL MPV 9.6 (9.4-12.3) fL Immature Gran % (Auto) 3.4 % Neut % (Auto) 68.8 % Lymph % (Auto) 13.4 % [place] % (Auto) 7.2 % Eos % (Auto) 6.2 % Baso % (Auto) 1.0 % Neut # (Auto) 4.67 (1.4-6.5) K/uL Lymph # (Auto) 0.91 L (1.2-3.4) K/uL [place] # (Auto) 0.49 (0.24-0.82) K/uL Eos # (Auto) 0.42 (0-0.50) K/uL Baso # (Auto) 0.07 (0-0.2) K/uL Immature Gran # (Auto) 0.23 H (0.00-0.02) K/uL Sodium 137 (136-145) mmol/L Potassium 4.1 (3.5-5.1) mmol/L Chloride 103 (98-107) mmol/L Carbon Dioxide 30 (21-32) mmol/L Anion Gap 4 (3-11) BUN 9 (6-23) mg/dl Creatinine 0.80 (0.6-1.2) mg/dl Est Cr Clr Drug Dosing 60.5 ml/min Est GFR ( Amer) 89.7 ml/min Est GFR (Non-Af Amer) 77.4 ml/min BUN/Creatinine Ratio 11.3 (10-20) Glucose 80 (70-99(Fasting)) mg/dl Calcium 8.1 L (8.5-10.1) mg/dl Medications Administered Current Inpatient Medications Acetaminophen (Acetaminophen 1000 Mg/100 Ml Iv) 1,000 mg IV Q8H PRN PRN Reason: Pain or Fever Stop: 12/26/21 14:52 Acetaminophen (Acetaminophen 325 Mg Tab) 650 mg PO Q4H PRN PRN Reason: Pain or Fever Stop: 01/24/22 19:59 Last Admin: 12/25/21 19:13 Dose: 650 mg Piperacillin Sod/Tazobactam (Sod 3.375 gm/ Dextrose) 115 mls @ 28.75 mls/hr IV Q8H [facility]; Protocol Stop: 01/04/22 15:59 Last Infusion: 12/26/21 12:02 Dose: Infused Ketorolac Tromethamine (Ketorolac Tromethamine 15 Mg/Ml Vial) 15 mg IV Q6H PRN PRN Reason: Moderate Pain Ondansetron HCl (Ondansetron Inj 2 Mg/Ml 2 Ml Vial) 4 mg IV Q6H PRN PRN Reason: Nausea Stop: 01/24/22 14:52
[2021-12-26] MEDS ORDERED: NON-FORMULARY MEDICATION (Estradiol 0.01 % (0.1 mg/gram) cream) PV SCH (13:45)
[2021-12-26] MEDS ORDERED: ACETAMINOPHEN 1,000 MG/100 ML VIAL IV PRN (16:20)
[2021-12-26] MEDS: SODIUM CHLORIDE 0.9% 500 ML IV SCH ×2 (17:10→22:28)
[2021-12-26] MEDS ORDERED: CALCIUM CARBONATE 500 MG CHEWABLE TAB PO PRN (21:43)
[2021-12-27] MEDS: SODIUM CHLORIDE 0.9% 500 ML IV SCH ×2 (04:26→10:54)
[2021-12-27] MEDS: PIPERACILLIN/TAZOBACTAM 3.375 GM in DEXTROSE 5% 100 ML IV SCH ×3 (08:11→23:36)
[2021-12-27 08:19] LABS: Hematocrit (blood only) 34.6 % (34.1-44.9); Hemoglobin 11.6 g/dl (12.0-16.0); Mean Corpuscular Hemoglobin 28.9 pg (25.0-34.0); Mean Corpuscular Hgb Conc 33.5 g/dL (32.0-36.0); Mean Corpuscular Volume 86.1 fL (80.0-100.0); Mean Platelet Volume 9.5 fL (9.4-12.3); Platelet Count 194 K/uL (130-400); RDW Coefficient of Variation 12.3 % (11.5-14.5); RDW Standard Deviation 38.8 fL (36.4-46.3); Red Blood Count 4.02 M/uL (3.93-5.22); White Blood Count 5.17 K/ul (4.8-10.8)
--- NOTE | 2021-12-27 08:27 | Hospitalist Progress Note ---
Date of Service December 27, 2021 Assessment & Plan (1) Diverticulitis: (2) Abscess of sigmoid colon due to diverticulitis: Plan: 66-year-old female with PMH diverticulitis presented to ER with complaint of nauea x 1 week, LLQ pain x 2 days. Denies fever/chills, vomiting, diarrhea. In ER patient afebrile, vital stable. WBC: 12.5. In ER CT abdomen pelvis: Acute sigmoid diverticulitis, 2 cm intramural abscess. In ER given Zofran, Zosyn, Toradol, 500 mL NSS Blood cultures pending, obtained after initial antibiotics given (no growth in 48 hrs) N.p.o. initially - > now tolerating clear liquids -> will advance to soft diet currently afebrile and WBC normal gentle IVF - can stop now as pt tolerating PO fluids cont. Zosyn General surgery consult. Recommends bowel rest and Zosyn, with no need for surgical intervention at this time Will need total of 14 days of antibiotics, and follow-up colonoscopy in 6 to 8 weeks. monitor CBC, BMP (3) Lichen sclerosus et atrophicus: Plan: Can continue chronic estradiol cream DVT Prophylaxis SCDs Full Code as per discussion with pt Follows with Dr Washington for routine care Admission and Anticipated Discharge Date Admission Date: December 25, 2021 Subjective Patient seen in follow-up of diverticulitis, with small abscess Currently laying in bed, in no acute distress Reports feeling better, abdominal pain much improved Nausea vomiting resolved She is tolerating clear liquid diet, will advance diet Started on IV Zosyn on admission, continue Surgery following Review of Systems Review of Systems: All systems reviewed & are unremarkable except as noted in Subjective Physical Exam Physical Exam: General: WD/WN F , in no distress Head: normocephalic, atraumatic Eyes: EOMI, PERRL, conjunctiva non-injected, anicteric ENT: normal inspection external ears, nose, mucous membranes moist Neck: supple Lungs: clear, no respiratory distress, no wheezing/rhonchi/rales CV: RRR, no murmur, no pretibial edema Abd: + BS, soft, +mild tenderness to palpation LLQ (improved) Ext: no calf tenderness, moves extremities Neuro: A&O x 3, normal affect, no facial asymmetry, speech fluent, answers questions appropriately, moves extremities Skin: warm, dry Results & Data Results & Data ([facility]) Vital Signs (Past 12 Hours) Vital Signs Temp Pulse Resp BP Pulse Ox O2 Del Method 12/27/21 07:47 36.6 C 51 L 16 108/74 97 12/26/21 21:45 36.6 C 50 L 16 117/75 98 Room Air Laboratory Results 12/27/21 12/27/21 Range/Units 07:38 07:38 WBC 5.17 (4.8-10.8) K/ul RBC 4.02 (3.93-5.22) M/uL Hgb 11.6 L (12.0-16.0) g/dl Hct 34.6 (34.1-44.9) % MCV 86.1 (80.0-100.0) fL MCH 28.9 (25.0-34.0) pg MCHC 33.5 (32.0-36.0) g/dL RDW Std Deviation 38.8 (36.4-46.3) fL RDW Coeff of [place] 12.3 (11.5-14.5) % Plt Count 194 (130-400) K/uL MPV 9.5 (9.4-12.3) fL Sodium 138 (136-145) mmol/L Potassium 4.1 (3.5-5.1) mmol/L Chloride 104 (98-107) mmol/L Carbon Dioxide 30 (21-32) mmol/L Anion Gap 4 (3-11) BUN 7 (6-23) mg/dl Creatinine 0.75 (0.6-1.2) mg/dl Est Cr Clr Drug Dosing 64.6 ml/min Est GFR ( Amer) 96.9 ml/min Est GFR (Non-Af Amer) 83.6 ml/min BUN/Creatinine Ratio 9.3 L (10-20) Glucose 84 (70-99(Fasting)) mg/dl Calcium 8.3 L (8.5-10.1) mg/dl Phosphorus 3.4 (2.5-4.9) mg/dl Magnesium 2.0 (1.7-2.4) mg/dl Medications Administered Current Inpatient Medications Acetaminophen (Acetaminophen 325 Mg Tab) 650 mg PO Q4H PRN PRN Reason: Pain or Fever Stop: 01/24/22 19:59 Last Admin: 12/25/21 19:13 Dose: 650 mg Calcium Carbonate (Calcium Carbonate 500 Mg Chewable Tab) 500 mg PO BID PRN PRN Reason: Indigestion Stop: 01/25/22 21:42 Last Admin: 12/26/21 21:49 Dose: 500 mg Piperacillin Sod/Tazobactam (Sod 3.375 gm/ Dextrose) 115 mls @ 28.75 mls/hr IV Q8H [facility]; Protocol Stop: 01/04/22 15:59 Last Admin: 12/27/21 08:11 Dose: 28.8 mls/hr Sodium Chloride (Nss) 500 mls @ 80 mls/hr IV .Q6H15M [facility] Stop: 01/25/22 16:29 Last Admin: 12/27/21 04:26 Dose: 80 mls/hr Acetaminophen (Ofirmev) 1,000 mg in 100 mls @ 400 mls/hr IV Q8H PRN PRN Reason: Pain Stop: 12/29/21 16:19 Ketorolac Tromethamine (Ketorolac Tromethamine 15 Mg/Ml Vial) 15 mg IV Q6H PRN PRN Reason: Moderate Pain Ondansetron HCl (Ondansetron Inj 2 Mg/Ml 2 Ml Vial) 4 mg IV Q6H PRN PRN Reason: Nausea Stop: 01/24/22 14:52
[2021-12-27 08:43] LABS: BUN Creatinine Ratio 9.3 (10-20); Calcium 8.3 mg/dl (8.5-10.1); Creatinine Clr Calc Pharmacy 64.6 ml/min; Est GFR (African American) 96.9 ml/min; Est GFR (Non-African American) 83.6 ml/min; Phosphorus 3.4 mg/dl (2.5-4.9); Potassium 4.1 mmol/L (3.5-5.1)
--- NOTE | 2021-12-27 13:54 | Surgery Progress Note ---
Date of Service December 27, 2021 Assessment & Plan (1) Abscess of sigmoid colon due to diverticulitis: Plan: Small 2 cm abscess, intramural First episode of complicated diverticulitis No leukocytosis, afebrile Pain improved and minimal today Plan: Advance to soft diet for lunch continue iv zosyn, will need total of 14 days of IV and oral antibiotics given intramural abscess will need colonoscopy in 6-[address] will continue to follow likely discharge tomorrow if tolerates advancement of diet Dr. Cali has seen patient during rounds and agrees with above. Admission and Anticipated Discharge Date Admission Date: December 25, 2021 Supervising Physician Co-Signing Physician Notes I have seen and examined the patient agree with the above assessment plan. We will continue conservative management with IV antibiotics. We will slowly advance diet as tolerated. Will need colonoscopy in 6 to 8 weeks. We will continue to follow. Subjective feeling better today pain is improved and minimal No fever, chills, n,v tolerating clear liquids passing gas no bowel movement feeling really well Physical Exam Constitutional: WD/WN, vitals as above no acute distress and not ill appearing Gastrointestinal (Abdomen): Inspection/Auscultation: abdomen normal to inspection; abdomen not distended Percussion/Palpation: + abdomen tender (mild in the LLQ on deep palpation, improved) and abdomen soft; no guarding and abdomen not rigid Skin: no rashes, warm and dry Psychiatric: Orientation: alert and oriented x 3 Results & Data ([facility]) Vital Signs (Past 12 Hours) Vital Signs Temp Pulse Resp BP Pulse Ox 12/27/21 07:47 36.6 C 51 L 16 108/74 97 Laboratory Results 12/27/21 12/27/21 Range/Units 07:38 07:38 WBC 5.17 (4.8-10.8) K/ul RBC 4.02 (3.93-5.22) M/uL Hgb 11.6 L (12.0-16.0) g/dl Hct 34.6 (34.1-44.9) % MCV 86.1 (80.0-100.0) fL MCH 28.9 (25.0-34.0) pg MCHC 33.5 (32.0-36.0) g/dL RDW Std Deviation 38.8 (36.4-46.3) fL RDW Coeff of [place] 12.3 (11.5-14.5) % Plt Count 194 (130-400) K/uL MPV 9.5 (9.4-12.3) fL Sodium 138 (136-145) mmol/L Potassium 4.1 (3.5-5.1) mmol/L Chloride 104 (98-107) mmol/L Carbon Dioxide 30 (21-32) mmol/L Anion Gap 4 (3-11) BUN 7 (6-23) mg/dl Creatinine 0.75 (0.6-1.2) mg/dl Est Cr Clr Drug Dosing 64.6 ml/min Est GFR ( Amer) 96.9 ml/min Est GFR (Non-Af Amer) 83.6 ml/min BUN/Creatinine Ratio 9.3 L (10-20) Glucose 84 (70-99(Fasting)) mg/dl Calcium 8.3 L (8.5-10.1) mg/dl Phosphorus 3.4 (2.5-4.9) mg/dl Magnesium 2.0 (1.7-2.4) mg/dl
[2021-12-28] MEDS: PIPERACILLIN/TAZOBACTAM 3.375 GM in DEXTROSE 5% 100 ML IV SCH (07:32)
--- NOTE | 2021-12-28 08:27 | Hospitalist Progress Note ---
Date of Service December 28, 2021 Assessment & Plan (1) Diverticulitis: (2) Abscess of sigmoid colon due to diverticulitis: Plan: 66-year-old female with PMH diverticulitis presented to ER with complaint of nauea x 1 week, LLQ pain x 2 days. Denies fever/chills, vomiting, diarrhea. In ER patient afebrile, vital stable. WBC: 12.5. In ER CT abdomen pelvis: Acute sigmoid diverticulitis, 2 cm intramural abscess. In ER given Zofran, Zosyn, Toradol, 500 mL NSS Blood cultures pending, obtained after initial antibiotics given (no growth in 48 hrs) N.p.o. initially - > now tolerating low residue soft diet currently afebrile and WBC normal gentle IVF initially, now as pt tolerating PO fluids cont. Zosyn General surgery consult. Recommends bowel rest and Zosyn, with no need for surgical intervention at this time Will need total of 14 days of antibiotics, and follow-up colonoscopy in 6 to 8 weeks. (3) Lichen sclerosus et atrophicus: Plan: Can continue chronic estradiol cream DVT Prophylaxis SCDs Full Code as per discussion with pt Follows with Dr Washington for routine care Admission and Anticipated Discharge Date Admission Date: December 25, 2021 Subjective Patient seen in follow-up of diverticulitis, with small abscess Currently sitting up in bed, in no acute distress, working on computer Reports feeling much better, abdominal pain much improved, she is tolerating diet Nausea vomiting resolved No BM yet Currently on IV Zosyn on admission Surgery following Review of Systems Review of Systems: All systems reviewed & are unremarkable except as noted in Subjective Physical Exam Physical Exam: General: WD/WN F , in no distress Head: normocephalic, atraumatic Eyes: EOMI, PERRL, conjunctiva non-injected, anicteric ENT: normal inspection external ears, nose, mucous membranes moist Neck: supple Lungs: clear, no respiratory distress, no wheezing/rhonchi/rales CV: RRR, no murmur, no pretibial edema Abd: + BS, soft, +minimal tenderness to palpation LLQ (much improved) Ext: no calf tenderness, moves extremities Neuro: A&O x 3, normal affect, no facial asymmetry, speech fluent, answers questions appropriately, moves extremities Skin: warm, dry Results & Data Results & Data ([facility]) Vital Signs (Past 12 Hours) Vital Signs Temp Pulse Resp BP Pulse Ox O2 Del Method 12/28/21 07:17 36.8 C 57 L 16 111/77 97 Room Air 12/27/21 21:54 36.8 C 59 L 16 97/62 L 98 Room Air Laboratory Results 12/27/21 Range/Units 07:38 Sodium 138 (136-145) mmol/L Potassium 4.1 (3.5-5.1) mmol/L Chloride 104 (98-107) mmol/L Carbon Dioxide 30 (21-32) mmol/L Anion Gap 4 (3-11) BUN 7 (6-23) mg/dl Creatinine 0.75 (0.6-1.2) mg/dl Est Cr Clr Drug Dosing 64.6 ml/min Est GFR ( Amer) 96.9 ml/min Est GFR (Non-Af Amer) 83.6 ml/min BUN/Creatinine Ratio 9.3 L (10-20) Glucose 84 (70-99(Fasting)) mg/dl Calcium 8.3 L (8.5-10.1) mg/dl Phosphorus 3.4 (2.5-4.9) mg/dl Magnesium 2.0 (1.7-2.4) mg/dl Medications Administered Current Inpatient Medications Acetaminophen (Acetaminophen 325 Mg Tab) 650 mg PO Q4H PRN PRN Reason: Pain or Fever Stop: 01/24/22 19:59 Last Admin: 12/25/21 19:13 Dose: 650 mg Calcium Carbonate (Calcium Carbonate 500 Mg Chewable Tab) 500 mg PO BID PRN PRN Reason: Indigestion Stop: 01/25/22 21:42 Last Admin: 12/26/21 21:49 Dose: 500 mg Piperacillin Sod/Tazobactam (Sod 3.375 gm/ Dextrose) 115 mls @ 28.75 mls/hr IV Q8H [facility]; Protocol Stop: 01/04/22 15:59 Last Admin: 12/28/21 07:32 Dose: 28.8 mls/hr Acetaminophen (Ofirmev) 1,000 mg in 100 mls @ 400 mls/hr IV Q8H PRN PRN Reason: Pain Stop: 12/29/21 16:19 Ketorolac Tromethamine (Ketorolac Tromethamine 15 Mg/Ml Vial) 15 mg IV Q6H PRN PRN Reason: Moderate Pain Ondansetron HCl (Ondansetron Inj 2 Mg/Ml 2 Ml Vial) 4 mg IV Q6H PRN PRN Reason: Nausea Stop: 01/24/22 14:52
[2021-12-28 08:50] LABS: Hematocrit (blood only) 37.9 % (34.1-44.9); Hemoglobin 12.7 g/dl (12.0-16.0); Mean Corpuscular Hemoglobin 28.8 pg (25.0-34.0); Mean Corpuscular Hgb Conc 33.5 g/dL (32.0-36.0); Mean Corpuscular Volume 85.9 fL (80.0-100.0); Mean Platelet Volume 9.6 fL (9.4-12.3); Platelet Count 239 K/uL (130-400); RDW Coefficient of Variation 12.3 % (11.5-14.5); RDW Standard Deviation 38.5 fL (36.4-46.3); Red Blood Count 4.41 M/uL (3.93-5.22); White Blood Count 5.55 K/ul (4.8-10.8)
[2021-12-28 09:19] LABS: Calcium 8.9 mg/dl (8.5-10.1); Creatinine Clr Calc Pharmacy 62.1 ml/min; Est GFR (African American) 92.5 ml/min; Est GFR (Non-African American) 79.8 ml/min; Magnesium 2.1 mg/dl (1.7-2.4); Phosphorus 3.5 mg/dl (2.5-4.9)
--- NOTE | 2021-12-28 10:42 | Discharge Summary ---
Date of Service December 28, 2021 Admission HPI Per Admitting Provider Patient is 66-year-old female with PMH diverticulitis presented to ER with complaint of left lower quadrant pain x 2 days. Reports past week with intermittent nausea that became worse yesterday. LLQ aching and cramping for 2 days that worsened last night. Denies radiating pain. She has been having clear liquid diet at home past several days as she was concerned she may have diverticulitis. Reports eating seemed to make pain worse. Patient reports history of diverticulitis in past that was able to be treated outpatient. Denies fever, chills, vomiting, diarrhea. Last BM this morning. History colonoscopy 04/05/2021: Diverticulosis in the entire colon. Denies diaphoresis, melena, hematochezia, TAPIA, dizziness, syncope, vision changes, neck pain, CP, SOB, orthopnea, palpitations, cough, sore throat, choking, otalgia, rhinorrhea, paresthesias, weakness, extremity weakness, extremity edema, rashes, urinary symptoms. In ER CT abdomen pelvis: Acute sigmoid diverticulitis, 2 cm intramural abscess. Admission Exam Per Admitting Provider General: no distress, WDWN Head: normocephalic, atraumatic Eyes: conjunctiva non-injected, anicteric ENT: normal inspection external ears, nose, mucous membranes moist Neck: supple, trachea midline Lungs: clear, no respiratory distress, no wheezing/rhonchi/rales CV: RRR, no murmur, no pretibial edema Abd: normal BS, soft, +tenderness to palpation LLQ Ext: no cyanosis, no calf tenderness Neuro: A&O x 3, no focal deficits noted, normal affect Skin: warm, dry Principal Diagnosis Diverticulitis, w/ abscess Discharge Exam General: WD/WN F , in no distress Head: normocephalic, atraumatic Eyes: EOMI, PERRL, conjunctiva non-injected, anicteric ENT: normal inspection external ears, nose, mucous membranes moist Neck: supple Lungs: clear, no respiratory distress, no wheezing/rhonchi/rales CV: RRR, no murmur, no pretibial edema Abd: + BS, soft, +minimal tenderness to palpation LLQ (much improved) Ext: no calf tenderness, moves extremities Neuro: A&O x 3, normal affect, no facial asymmetry, speech fluent, answers questions appropriately, moves extremities Skin: warm, dry Discharge Data Allergies Allergy/AdvReac Type Severity Reaction Status Date / Time nickel Allergy Unknown rash Verified 08/19/21 14:43 No Known Drug Allergies Allergy Verified 08/19/21 14:43 Consultations 12/25/21 11:21 ED Decision to Admit Stat 12/25/21 14:53 Consult General Surgery Routine Ordered Studies 12/25/21 09:42 CT abd pelvis IV con only Stat COMPARISON STUDY: None. FINDINGS: Mild dependent changes seen within the lung bases. No pneumoperitoneum. No pneumatosis. [id number] levoscoliosis of the lower thoracolumbar spine. No fractures within the visualized osseous structures. A few subcentimeter hypodense lesions within the liver which are technically too small to characterize but favor cysts. The gallbladder, spleen, adrenal glands, and kidneys are unremarkable. No hydronephrosis. The main portal vein is patent. Normal caliber abdominal aorta. No retroperitoneal lymphadenopathy. There is a 5 mm hypodense lesion within the pancreatic head. This is technically too small to characterize but favors a small cystic lesion such as a side branch intraductal papillary mucinous neoplasm or serous cystadenoma. The bladder, uterus, and ovaries are within normal limits. Trace pelvic free fluid. Multiple colonic diverticula. Focal thickening within the proximal to mid sigmoid colon with pericolonic fat stranding and an inflamed diverticulum consistent with acute diverticulitis. There is a loculated peripheral enhancing hypodense focus within the inflamed sigmoid colon on image 331 which measures 2 cm. This favors a small intramural abscess. No extraluminal gas identified. No evidence for bowel obstruction. Moderate well-formed stool within the colon. Normal appendix. IMPRESSION: 1. Acute sigmoid diverticulitis. There appears to be a 2 cm intramural abscess. No extraluminal gas identified at this time. 2. No evidence for a bowel obstruction. 3. Normal appendix. 4. Trace pelvic free fluid. Hospital Course (1) Diverticulitis: (2) Abscess of sigmoid colon due to diverticulitis: 66-year-old female with PMH diverticulitis presented to ER with complaint of nauea x 1 week, LLQ pain x 2 days. Denies fever/chills, vomiting, diarrhea. In ER patient afebrile, vital stable. WBC: 12.5. In ER CT abdomen pelvis: Acute sigmoid diverticulitis, 2 cm intramural abscess. In ER given Zofran, Zosyn, Toradol, 500 mL NSS Blood cultures pending, obtained after initial antibiotics given (no growth in 48 hrs) N.p.o. initially - > now tolerating low residue soft diet currently afebrile and WBC normal gentle IVF initially, now as pt tolerating PO fluids cont. Zosyn General surgery consult. Recommends bowel rest and Zosyn, with no need for surgical intervention at this time Will need total of 14 days of antibiotics, and follow-up colonoscopy in 6 to 8 weeks. (3) Lichen sclerosus et atrophicus: Can continue chronic estradiol cream Follows with Dr Washington for routine care Total Time Total Time Spent Total Time Spent (In Minutes): 40 Discharge Plan Discharge Items Patient Disposition: Home - Self-Care Reason For Visit: DIVERTICULITIS Discharge Diagnosis: Diverticulitis, w/ abscess Activity: Per Instructions section Non-emergency contact: Primary Care Provider and Engraver Seals Call non-emergency contact if: you have any medication questions and your symptoms worsen Follow-up/Referrals: Cuba Washington MD [Primary Care Provider] - (Date & Time 01/03/2022 12:00 PM Provider Raimundo Loaiza DO [facility] ) Diet: Low Fiber Leann Attending Provider Instructions: Follow-up with your primary care doctor, the appointment was scheduled for you for January 03. Finish antibiotic treatment, as prescribed. Recommend low fiber diet, low-fat diet for now. You will need colonoscopy in 6 to 8 weeks. You can also follow-up with general surgery, on as needed basis. Please see recommendations from the surgical team below. Addtl Social Work Coordinator Provider Instructions: Recommend low fiber diet for the next 4 weeks during this acute phase and then will transition to high fiber diet to avoid constipation or straining you should follow-up with your warehouse analyst for colonoscopy in 6-8 weeks given the complicated diverticulitis with a small abscess can follow-up in surgical office in 2 weeks or follow-up with , [facility] General Surgery office at [facility]. Office number is [phone] Pending Studies at Discharge: No Stand-Alone Forms: My [employer], Smoking Cessation Medications and DC Order Prescriptions: New amoxicillin-pot clavulanate 875-125 mg tablet 1 tab PO BID 12 Days Qty: 24 0RF Continued multivitamin [Multiple Vitamins] Tablet 1 tab PO DAILY clobetasol 0.05 % cream 1 applic TOP .COMPLEX Qty: 15 1RF Rx Instructions: 1 applic topical 1-2 times per week; estradiol 0.01 % (0.1 mg/gram) cream 1 g vaginal .COMPLEX Qty: 42.5 2RF Rx Instructions: 1 g apply to vulva twice weekly Discharge Orders: Discharge Order (Routine); Ordered 12/28/21 Ordered By: Cesar Hanley Admission Data Admit Date/Time: 12/25/21 11:33 Attending Provider: Chapito Pelaez Admit Provider: Felisa Malik Primary Care Provider: Cuba Washington Other Providers: Felisa Malik ; Jazmyne Littlejohn ; Gemma Menezes
--- NOTE | 2021-12-28 11:44 | Surgery Progress Note ---
Date of Service December 28, 2021 Assessment & Plan (1) Abscess of sigmoid colon due to diverticulitis: Plan: Small 2 cm abscess, intramural First episode of complicated diverticulitis No leukocytosis, afebrile Pain resolved, tolerated advancement of diet Plan: okay from surgical standpoint for discharge will need total of 14 days of IV and oral antibiotics given intramural abscess will need colonoscopy in 6-8 weeks Can follow-up in [facility] surgical office in 2 weeks if patient prefers Discussed with Dr. Cali who agrees with above. Admission and Anticipated Discharge Date Admission Date: December 25, 2021 Subjective feeling great, ready to go home no abdominal pain, no n,v tolerated low fiber diet passing gas no bm yet Physical Exam Constitutional: WD/WN, vitals as above no acute distress and not ill appearing Neck: normal visual inspection and trachea midline Gastrointestinal (Abdomen): Inspection/Auscultation: abdomen normal to inspection; abdomen not distended Percussion/Palpation: abdomen soft; abdomen nontender, no guarding and abdomen not rigid Skin: no rashes, warm and dry Psychiatric: A+Ox3, euthymic affect Results & Data ([facility]) Vital Signs (Past 12 Hours) Vital Signs Temp Pulse Resp BP Pulse Ox O2 Del Method 12/28/21 07:17 36.8 C 57 L 16 111/77 97 Room Air Laboratory Results 12/28/21 12/28/21 Range/Units 08:14 08:14 WBC 5.55 (4.8-10.8) K/ul RBC 4.41 (3.93-5.22) M/uL Hgb 12.7 (12.0-16.0) g/dl Hct 37.9 (34.1-44.9) % MCV 85.9 (80.0-100.0) fL MCH 28.8 (25.0-34.0) pg MCHC 33.5 (32.0-36.0) g/dL RDW Std Deviation 38.5 (36.4-46.3) fL RDW Coeff of Dixon 12.3 (11.5-14.5) % Plt Count 239 (130-400) K/uL MPV 9.6 (9.4-12.3) fL Sodium 138 (136-145) mmol/L Potassium 4.0 (3.5-5.1) mmol/L Chloride 103 (98-107) mmol/L Carbon Dioxide 32 (21-32) mmol/L Anion Gap 3 (3-11) BUN 7 (6-23) mg/dl Creatinine 0.78 (0.6-1.2) mg/dl Est Cr Clr Drug Dosing 62.1 ml/min Est GFR ( Amer) 92.5 ml/min Est GFR (Non-Af Amer) 79.8 ml/min BUN/Creatinine Ratio 9.0 L (10-20) Glucose 89 (70-99(Fasting)) mg/dl Calcium 8.9 (8.5-10.1) mg/dl Phosphorus 3.5 (2.5-4.9) mg/dl Magnesium 2.1 (1.7-2.4) mg/dl
== END 2021-12-28 13:37 | disposition home or self-care (01) ==
LOC: ED 09:32 → EDINP 11:33 → INTOOBSV 11:33 → SUATTDRO 11:33 → 3W 15:18